=== PATIENT | male | born 1970 | race Caucasian/White ===

== ENCOUNTER 2024-06-24 07:18 | Emergency (ER) | payer OTHER, SELFPAY ==
[2024-06-24 07:19] VITALS: BP 184/107; PULSE 82; RESP 16; TEMP 36.2; O2SAT 99
[2024-06-24 07:22] VITALS: BMI 28.7
--- NOTE | 2024-06-24 07:37 | EDS_ITS ---
HPI History of Present Illness Chief Complaint: Chest Pain Narrative Narrative: Chief complaint and HPI: Chest pain. 54-year-old male with history of anxiety presents for evaluation of intermittent chest pain. Patient states on Thursday he got a flu shot in his left arm. He states since then he has been having pain in his left upper arm that periodically radiates down and into the chest. He states pain worsened on Thursday after sitting in his tree stand. He states the pain has been intermittent. Worse at night. Pain improves with physical activity and movement. Patient also endorses shoveling for the past 3 days. He endorses slight shortness of breath due to the pain. He denies any fever, chills, URI symptoms, cough, syncope. Points to his upper arm where most of the pain is located. Patient has been taking intermittent Motrin. The last dose being 12:30 AM. Non-smoker. No history of cardiac disease. Denies bilateral lower extremity swelling or pain. Denies any recent travel. Review of systems: See HPI Medications: As listed on the chart Allergies: As listed on the chart PFSH: Per chart Vital signs: As listed on the chart. Reviewed. Physical exam: Gen: A&O x3, NAD but anxious Head: Normocephalic, atraumatic Eyes: No sclera icterus, conjunctiva clear ENT: Moist mucous membranes Neck: Trachea midline, No JVD CV: RRR, no murmurs, no peripheral edema Resp: Lungs CTA BL, no w/r/c GI: Abd soft, non-distended, non-tender, no r/r/g Musc: Full ROM, no deformity, tender to palpation in the left upper arm especially in the biceps distribution-states this recreates his pain with palpation Skin: Warm, dry Neuro: Alert, oriented, grossly intact, sensation intact Psych: Cooperative, anxious [facility] Medical History (Updated 06/24/24 @ 10:[address] Dandre Aguirre DO) Hypertension Allergy/AdvReac Type Severity Reaction Status Date / Time No Known Allergies Allergy Verified 06/24/24 07:30 Social History Smoking Status: Never smoker EXAM Physical Exam Const Vital Signs: 06/24/24 07:19 06/24/24 07:27 06/24/24 08:18 Temperature 97.2 F L Temperature Source Oral Pulse Rate 82 66 Respiratory Rate 16 18 Respiratory Effort Short of Breath Blood Pressure 184/107 H 147/96 H Blood Pressure Mean 132 113 Pulse Ox 99 Oxygen Delivery Method Room Air 06/24/24 09:00 06/24/24 10:00 Temperature Temperature Source Pulse Rate 65 61 Respiratory Rate 16 16 Respiratory Effort Blood Pressure 146/96 H 131/91 H Blood Pressure Mean 112 104 Pulse Ox 98 Oxygen Delivery Method Room Air MDM MDM MDM Narrative Medical decision making narrative: 55-year-old male with history of anxiety presents for evaluation of intermittent chest pain. Pain is mostly located in his left upper arm but radiates to the chest as well as down the arm. No cardiac history. Pain gets better with activity. Differential diagnosis includes but is not limited to musculoskeletal strain although low risk ACS, PE, pneumonia, electrolyte abnormality is also included in the differential. Toradol given for pain. Cardiac workup ordered. On arrival, patient is hypertensive. He has no history of this. He is very anxious on physical exam. He did not take his sertraline yet today. I do think his hypertension is secondary to his anxiety. EKG and chest x-ray reviewed see below. CBC without leukocytosis or anemia. D-dimer unremarkable. BMP unremarkable. Troponin unremarkable X2. BNP unremarkable. At this point in time, no clear etiology to explain patient's pain. Again, I think this is likely secondary to a left upper extremity strain given that his pain is reproducible with palpation of the muscles. Heart score is a 1 due to age. Low risk for any ACS. Patient and family member was updated of all the results and the plan. He was given education on RICE therapy. Follow-up with PCP as needed. Return precautions explained. Patient stable to discharge home. EKG: Interpreted by me/EM physician: EKG shows normal sinus rhythm without any acute ischemic changes. Heart rate 80 Diagnostic: Interpreted by me/EM physician: Chest x-ray without pneumonia, effusion, pneumothorax, cardiomegaly Impression: 1. Chest pain 2. Left upper extremity arm strain Lab Data Labs: Laboratory Results - last 24 hr 06/24/24 06/24/24 06/24/24 07:35 07:35 08:05 WBC Cancelled 5.8 Corrected WBC Cancelled RBC Cancelled 4.97 Hgb Cancelled 15.2 Hct Cancelled 42.8 MCV Cancelled 86.1 MCH Cancelled 30.6 MCHC Cancelled 35.5 RDW Std Deviation Cancelled 37.7 RDW Coeff of Franc Cancelled 11.9 Plt Count Cancelled 250 MPV Cancelled 10.2 Immature Gran % (Auto) Cancelled 0.300 Neut % (Auto) Cancelled 70.1 H Lymph % (Auto) Cancelled 18.4 L [place] % (Auto) Cancelled 9.0 Eos % (Auto) Cancelled 1.2 Baso % (Auto) Cancelled 1.0 Absolute Neuts (auto) Cancelled 4.0 Absolute Lymphs (auto) Cancelled 1.06 Total Counted Cancelled Neutrophils % (Manual) Cancelled Band Neutrophils % Cancelled Lymphocytes % (Manual) Cancelled Monocytes % (Manual) Cancelled Eosinophils % (Manual) Cancelled Basophils % (Manual) Cancelled Metamyelocytes % Cancelled Myelocytes % Cancelled Promyelocytes % Cancelled Blast Cells % Cancelled Plasma Cell % (Manual) Cancelled Other Cells % Cancelled Nucleated RBC % Cancelled 0 Nucleated RBCs/100 WBC Cancelled Differential Comment Cancelled Diff Path Review Cancelled Hypersegmented Neuts Cancelled Atypical Lymphocytes Cancelled Reactive Lymphocytes Cancelled Smudge Cells Cancelled Toxic Granulation Cancelled Toxic Vacuolation Cancelled Dohle Bodies Cancelled [place] Cancelled Platelet Estimate Cancelled Plt Morphology Comment Cancelled RBC Morphology Cancelled Cancelled Polychromasia Cancelled Hypochromasia Cancelled Basophilic Stippling Cancelled Anisocytosis Cancelled Microcytosis Cancelled Macrocytosis Cancelled Spherocytes Cancelled Sickle Cells Cancelled Target Cells Cancelled Tear Drop Cells Cancelled Ovalocytes Cancelled Stomatocytes Cancelled [place] Bodies Cancelled [place] Cells Cancelled Bite Cells Cancelled Crenated Cell Cancelled Acanthocytes (Spur) Cancelled Rouleaux Cancelled Schistocytes Cancelled D-Dimer Quant (PE/DVT) 0.28 Sodium 136 Potassium 4.0 Chloride 103 Carbon Dioxide 28.0 Anion Gap 5 BUN 15 Creatinine 1.10 Estim Creat Clear Calc 79.16 Est GFR (MDRD) Af Amer 90 Est GFR (MDRD) Non-Af 74 BUN/Creatinine Ratio 13.6 Glucose 115 H Calcium 9.5 Troponin I High Sens 6 B-Natriuretic Peptide 23.5 06/24/24 09:45 WBC Corrected WBC RBC Hgb Hct MCV MCH MCHC RDW Std Deviation RDW Coeff of Franc Plt Count MPV Immature Gran % (Auto) Neut % (Auto) Lymph % (Auto) [place] % (Auto) Eos % (Auto) Baso % (Auto) Absolute Neuts (auto) Absolute Lymphs (auto) Total Counted Neutrophils % (Manual) Band Neutrophils % Lymphocytes % (Manual) Monocytes % (Manual) Eosinophils % (Manual) Basophils % (Manual) Metamyelocytes % Myelocytes % Promyelocytes % Blast Cells % Plasma Cell % (Manual) Other Cells % Nucleated RBC % Nucleated RBCs/100 WBC Differential Comment Diff Path Review Hypersegmented Neuts Atypical Lymphocytes Reactive Lymphocytes Smudge Cells Toxic Granulation Toxic Vacuolation Dohle Bodies [place] Platelet Estimate Plt Morphology Comment RBC Morphology Polychromasia Hypochromasia Basophilic Stippling Anisocytosis Microcytosis Macrocytosis Spherocytes Sickle Cells Target Cells Tear Drop Cells Ovalocytes Stomatocytes Rainey-[place] Bodies Dk Cells Bite Cells Crenated Cell Acanthocytes (Spur) Rouleaux Schistocytes D-Dimer Quant (PE/DVT) Sodium Potassium Chloride Carbon Dioxide Anion Gap BUN Creatinine Estim Creat Clear Calc Est GFR (MDRD) Af Amer Est GFR (MDRD) Non-Af BUN/Creatinine Ratio Glucose Calcium Troponin I High Sens 5 B-Natriuretic Peptide Radiography Diagnostic Testing: Clinical Impression(s) from Imaging Studies Chest X-Ray 06/24/24 07:58 IMPRESSION: Normal x-ray examination of the chest. Electronically Signed: Thiago Vargas MD at 8:15 EST , Discharge Plan Triage Chief Complaint: Chest Pain ED Provider: Dandre Aguirre Dx/Rx/DC Orders Clinical Impression: Chest pain, Muscle strain of left upper arm Instructions: Treating?Strains and Sprains, Chest Pain [facility] Primary Care Provider: Jeni Deluna Referrals: Jeni Deluna MD [Primary Care Provider] - 3-5 Days Activity Restrictions/Additional Instructions: Tylenol and Motrin for pain. Follow-up with PCP. Return back to the ED if sy mptoms change or worsen. Print Language: Turkish Disposition Disposition: Home, Self Care
[2024-06-24] MEDS: Ketorolac 15 MG/ML Vial IV (07:47)
--- NOTE | 2024-06-24 07:58 | RAD_ITS ---
STUDY: X-RAY CHEST REASON FOR EXAM: Male, 54 years old. Chest pain TECHNIQUE: Single AP portable view of the chest. COMPARISON: None. FINDINGS: EKG electrodes are seen. The lungs are clear and expanded. There is no demonstrated pleural abnormality. Normal size heart. Normal mediastinum and chidi. Normal visualized pulmonary arteries. Normal visualized aortic arch and descending thoracic aorta. Normal visualized thoracic spine. Normal visualized ribs, clavicles, and shoulders. There is no demonstrated abnormality of the visualized soft tissue structures of the upper abdomen. RAD/Chest 1 View (Portable) IMPRESSION: Normal x-ray examination of the chest. Electronically Signed: Thiago Vargas MD at 8:15 [facility] ,
[2024-06-24 08:05] LABS: Anion Gap 5 (5-15); BUN 15 mg/dL (7-18); BUN/Creat Ratio 13.6 RATIO (10-20); Calcium,Total 9.5 mg/dL (8.5-10.1); Chloride 103 mmol/L (98-107); D-Dimer Quantitative (DVT/PE) 0.28 FEU/ug/m (0.27-0.49); EST Glomerular Filtration Rate 74 mL/min (>60); Est Glom Filt Rate - Afr Amer 90 mL/min (>60); Estimated Creatinine Clearance 79.16 ml/min; Glucose 115 mg/dL (74-106); Sodium Level 136 mmol/L (136-145); Troponin-I HS (w/2H Reflex) 6 pg/mL (3.0-78.0)
[2024-06-24 08:13] LABS: Absolute Lymphocyte Count 1.06 X10^3/uL (0.83-4.51); Basophil# 0.06 X10^3/uL; Eosinophil# 0.07 X10^3/uL; Eosinophils% 1.2 % (0-5); Hematocrit 42.8 % (40-54); Hemoglobin 15.2 g/dL (13.0-16.5); Lymphocyte # 1.06 X10^3/ul (0.83-4.51); Lymphocyte % 18.4 % (19-41); Mean Corp Hgb Conc 35.5 g/dL (32-36); Mean Corpuscular Hgb 30.6 pg (27.0-32.0); Mean Corpuscular Volume 86.1 fL (80-94); Mean Platelet Vol. 10.2 fl (6.2-12.0); Monocyte# 0.52 X10^3/uL; NRBC Flagged by Analyzer 0 % (0-5); Neutrophil # 4.03 X10^3/uL (2.7-7.7); Neutrophil % 70.1 % (47-70); Platelet Count 250 K/mm3 (150-450); RBC Distribution Width CV 11.9 % (11.6-14.6); RBC Distribution Width SD 37.7 fl (35.1-43.9); Red Blood Count 4.97 M/mm3 (4.6-6.2); White Blood Count 5.8 K/mm3 (4.4-11.0)
[2024-06-24 08:18] VITALS: BP 147/96; PULSE 66; RESP 18
[2024-06-24 09:00] VITALS: BP 146/96; PULSE 65; RESP 16; O2SAT 98
[2024-06-24 09:37] LABS: BNP,B-Type NATRIURETIC PEPTIDE 23.5 pg/mL (0-100)
[2024-06-24 09:42] LABS: Reflex Troponin-HS? (from REC) Y
[2024-06-24 10:00] VITALS: BP 131/91; PULSE 61; RESP 16
[2024-06-24 10:23] LABS: Troponin-I HS 5 pg/mL (3.0-78.0)
== END 2024-06-24 10:50 | disposition home or self-care (01) ==
PROVIDERS: Emergency Provider Surgery; PCP Internal Medicine; Visit Provider Surgery
DX: R07.9 Chest pain, unspecified (principal); S46.912A Strain of unspecified muscle, fascia and tendon at shoulder and upper arm level, left arm, initial encounter; X58.XXXA Exposure to other specified factors, initial encounter; F41.9 Anxiety disorder, unspecified; I10 Essential (primary) hypertension; Z79.899 Other long term (current) drug therapy
CPT/HCPCS: 71045; 80048; 83880; 84484; 85025; 85379; 93005; 96374; 99283; A4216